=== PATIENT | female | born 1965 | race Caucasian/White ===

== ENCOUNTER → 2018-05-21 | Outpatient (CLI) | payer BC | LOC: FIMAGING 15:29 | PROVIDERS: ATTEND Orthopaedic Surgery | DX: M16.12 Unilateral primary osteoarthritis, left hip (principal) ==

== ENCOUNTER 2018-06-04 10:52 | Inpatient (IN) | payer BC ==
--- NOTE | 2018-06-04 06:50 | PDHPUP ---
History & Physical Update H&P update statement: This history and physical update is based on an assessment of the patient which was completed after admission or registration (within 24 hours), but prior to the surgery/procedure. H&P update: no change in patient's condition since H&P completed
--- NOTE | 2018-06-04 06:51 | PDIAF ---
- Diagnosis Diagnosis: left hip djd Code Status: Full Code - Medication Management Discharge Medications: electronically signed and located in the Home Medication List. - Orders Services needed: Home Care, Physical Therapy Home Care Face to Face: I certify that this patient was under my care and that I had the required mygl-pe-nnek encounter meeting the encounter requirements on the discharge day. My findings support the fact that the patient is homebound as defined in Home Care Face to Face Continued: CMS Chapter 7 Medicare Benefits Manual 30.1.1 , The condition of the patient is such that there exists a normal inability to leave home and consequently, leaving home would require a considerable and taxing effort. Diet Recommendation: no restrictions on diet Diet Texture: Regular Texture Diet Additional Instructions: TOTAL JOINT ARTHROPLASTY DISCHARGE INSTRUCTIONS 1. Your surgeon follows the [facility] protocol for reducing your risk of DVT (blood clots) following surgery. Medication will be ordered to prevent blood clots. A sudden increase in calf pain and/or swelling could indicate a blood clot in your leg. If this occurs, please call your surgeon or his/her pest controller assistant. An ultrasound of the leg may be necessary to diagnose a blood clot. If you have conditions that make you a higher risk for blood clots, your surgeon may use more aggressive ways to prevent them. Notify your surgeon if you think you are a high risk for blood clots. 2. Wear your white surgical stockings (GENNY hose) for 2 weeks. This decreases your swelling and may help prevent blood clots. It is ok to remove GENNY hose at night time to give your legs a break. 3. Swelling and bruising in the surgical leg is common. If you feel that it is excessive, please notify your surgeon. 4. Elevate your surgical leg with the ankle above the hip several times every day. Please keep the leg straight when you elevate by putting pillows under your foot. Do not put pillows under your knee. This will make being able to fully straighten more difficult. This is uncomfortable, but try to do it as much as possible. 5. For total knee replacements use compressive wrap on your knee for 3-5 days after surgery, then you can discontinue it. 6. Use a walker or crutches for 1-2 weeks. Progress your weight-bearing as tolerated. You may start to use a cane when you feel stable and safe. 7. You will receive physical therapy instructions in the hospital. Continue those exercises at home. There are additional exercises in the total joint booklet you were given before surgery. Outpatient physical therapy will begin 7- 10 days after surgery. Please schedule this in advance. 8. Use ice on your knee at least 3-5 times every day for 30 minutes. This helps reduce pain and swelling. Also use it at night before falling asleep. 9. Leave your surgical dressing in place for 2 weeks. Your dressing is water resistant, but not waterproof. Cover it with Saran Wrap or Vcrfa-c-Wpwb before showering. You may shower as soon as you feel safe entering a shower. If you notice bleeding from your incision 2 or 3 days after surgery, please notify your surgeon. 10. Due to narcotics, decreased activity and altered diet, most patients experience constipation after surgery. Use migf-dyh-dtfxxdn stool softeners while you are on narcotics. 11. You may drive a car when you are comfortable bearing weight, have good muscular control of your leg and are off narcotics. This usually occurs 2-4 weeks after surgery, depending on which leg was operated on. 12. If there are questions not addressed here, please refer the [facility] book given for more information. If you still have questions, please contact your surgeon s office. 13. If you have a life-threatening emergency, please call 911 and go to the emergency room immediately. For non-life threatening emergencies, please call your physicians office for advice before going to the emergency room. - Follow Up Care Current Providers and Referrals: Sharonda Mina PA [Primary Care Provider] - Yousif Cisneros MD [Medical Doctor] -
[~2018-06-04 10:52] MED LIST: ROPIVACAINE 0.2% 80 MG, EPINEPHrine 0.2 MG, KETOROLAC TROMETHAMINE 30 MG, morphINE 10 M... IU ONE; TRANEXAMIC ACID 1,000 MG in NS 100 ML IV ONE
[2018-06-04] MEDS ORDERED: ceFAZolin 2 GM/DEXTROSE 100 ML IV ONE (11:03)
[2018-06-04] MEDS ORDERED: ACETAMINOPHEN 325 MG TAB PO ONE (11:03)
[2018-06-04] MEDS ORDERED: FAMOTIDINE 20 MG TAB PO ONE (11:03)
[2018-06-04] MEDS ORDERED: LR 1,000 ML IV SCH ×2 (11:30→16:00)
[2018-06-04] MEDS ORDERED: POLYMYXIN B SULFATE 500,000 UNIT/10 ML SYR IRR ONE (13:00)
[2018-06-04] MEDS ORDERED: BACITRACIN 50,000 UNITS/10 ML SYR IRR ONE (13:01)
--- NOTE | 2018-06-04 13:02 | PDANEPAE ---
ANE Past Medical History - Cardiovascular History Hx Hypertension: Yes Hx Arrhythmias: No Hx Chest Pain: No Hx Coronary Artery / Peripheral Vascular Disease: No Hx CHF / Valvular Disease: No Hx Palpitations: No - Pulmonary History Hx COPD: No Hx Asthma/Reactive Airway Disease: No Hx Recent Upper Respiratory Infection: No Hx Oxygen in Use at Home: No Hx Sleep Apnea: No Sleep Apnea Screening Result - Last Documented: Negative Pulmonary History Comment: ASTHMA W/BRONCHITIS OCCAS - Neurologic History Hx Cerebrovascular Accident: No Hx Seizures: No Hx Dementia: No Neurologic History Comment: HORMONAL H/As - Endocrine History Hx Diabetes: No - Renal History Hx Renal Disorders: No - Liver History Hx Hepatic Disorders: No - Neurological & Psychiatric Hx Hx Neurological and Psychiatric Disorders: No - Cancer History Hx Cancer: No - Congenital Disorder History Hx Congenital Disorders: No - GI History Hx Gastrointestinal Disorders: No - Other Health History Other Health History: NEG - Chronic Pain History Chronic Pain: Yes (L HIP & DOWN TO ANKLE) - Surgical History Prior Surgeries: NONE ANE Review of Systems Review of Systems: - Exercise capacity METS (RN): 4 METS ANE Patient History - Allergies Allergies/Adverse Reactions: No Known Allergies Allergy (Verified 04/30/18 15:03) - Home Medications Home Medications: Cholecalciferol Vit D3 [Vitamin D3 (*)] 1,000 units PO DAILY 04/30/18 [Last Taken 05/28/18] Desogestrel-Ethinyl Estradiol [Reclipsen 28 Day Tablet] 0.5 each PO DAILY [Last Taken 05/14/18] Herbals/Supplements -Info Only 1 ea PO DAILY 04/30/18 [Last Taken 05/28/18] Ibuprofen [Motrin (*)] 200 mg PO DAILY PRN 04/30/18 [Last Taken 05/28/18] Losartan/Hydrochlorothiazide [Losartan-Hctz 100-12.5 mg Tab] 1 each PO DAILY 08/17 [Last Taken 06/03/18] Meloxicam 15 mg PO DAILY 04/30/18 [Last Taken 05/28/18] Multivitamins [Multivitamin (*)] 1 each PO DAILY 04/30/18 [Last Taken 03/22/18] - NPO status NPO Since - Liquids (Date): 06/04/18 NPO Since - Liquids (Time): 08:00 NPO Since - Solids (Date): 06/03/18 NPO Since - Solids (Time): 19:00 - Smoking Hx Smoking Status: Never smoked - Family Anes Hx Family Hx Anesthesia Complications: NEG ANE Labs/Vital Signs - Vital Signs Blood Pressure: 172/99 Heart Rate: 72 Respiratory Rate: 20 O2 Sat (%): 96 Height: 152.4 cm Weight: 97.522 kg ANE Physical Exam - Airway Mallampati Score: Class 2 - ASA Status ASA Status: II ANE Anesthesia Plan Anesthesia Plan: GA w LMA
[2018-06-04] MEDS ORDERED: MIDAZOLAM 2 MG/2 ML VIAL ONE (13:23)
[2018-06-04] MEDS ORDERED: METOCLOPRAMIDE 10 MG/2 ML VIAL ONE (13:24)
[2018-06-04] MEDS ORDERED: LIDOCAINE 2% JELLY 5 ML TUBE ONE (13:24)
[2018-06-04] MEDS ORDERED: PROPOFOL 200 MG/20 ML VIAL ONE (13:24)
[2018-06-04] MEDS ORDERED: fentaNYL 100 MCG/2 ML INJ ONE ×3 (13:24→15:51)
[2018-06-04] MEDS ORDERED: ONDANSETRON 4 MG/2 ML VIAL ONE ×3 (13:24→16:06)
[2018-06-04] MEDS ORDERED: PROPOFOL/EMULSION 500 MG/50 ML BOTTLE IV ONE (14:13)
[2018-06-04] MEDS ORDERED: LR 500 ML IV PRN (15:49)
[2018-06-04] MEDS ORDERED: MEPERIDINE 25 MG/0.5 ML AMP IVP PRN (15:49)
[2018-06-04] MEDS ORDERED: NALOXONE HCL 0.4 MG/ML INJ IVP PRN (15:49)
--- NOTE | 2018-06-04 15:50 | POSTANESTH ---
Post Anesthetic Evaluation Cardiovascular Status: Similar to Pre-Op Cond Respiratory Status: Normal, Stable Level of Consciousness/Mental Status: Can Participate in Eval Pain Control: Adequate, Prn Tx Ordered Nausea/Vomiting Control: Adequate, Prn Tx Ordered Complications Possibly Related to Anesthesia: None Noted
[2018-06-04] MEDS ORDERED: DIPHENOXYLATE/ATROPINE LOMOTIL 1 TAB PO PRN (15:53)
[2018-06-04] MEDS ORDERED: MAGNESIUM HYDROXIDE 30 ML UDCUP PO PRN (15:53)
[2018-06-04] MEDS ORDERED: diphenhydrAMINE 25 MG CAP PO PRN (15:53)
[2018-06-04] MEDS ORDERED: ONDANSETRON 4 MG/2 ML VIAL IVP PRN (15:53)
[2018-06-04] MEDS ORDERED: CYCLOBENZAPRINE 10 MG TAB PO PRN (15:53)
[2018-06-04] MEDS ORDERED: PROMETHAZINE HCL 25 MG SUPPR PR PRN (15:53)
[2018-06-04] MEDS ORDERED: POLYETHYLENE GLYCOL 3350 17 GM PKT PO PRN (15:53)
[2018-06-04] MEDS ORDERED: METOCLOPRAMIDE 10 MG/2 ML VIAL IVP PRN (15:53)
[2018-06-04] MEDS ORDERED: BISACODYL 10 MG SUPP PR PRN (15:53)
[2018-06-04] MEDS ORDERED: TEMAZEPAM 15 MG CAP PO PRN (15:53)
[2018-06-04] MEDS ORDERED: LACTULOSE 20 GM/30 ML UDCUP PO PRN (15:53)
[2018-06-04] MEDS ORDERED: ONDANSETRON DISINTEGRATING 4 MG TAB PO PRN (15:53)
[2018-06-04] MEDS ORDERED: PROMETHAZINE HCL 25 MG/ML INJ IVP PRN (15:53)
[2018-06-04] MEDS: fentaNYL 100 MCG/2 ML INJ IVP PRN ×2 (15:54→16:05)
[2018-06-04] MEDS ORDERED: HYDROmorphONE/DILAUDID 2 MG/ML INJ ONE (15:55)
--- NOTE | 2018-06-04 15:56 | POSTOPPROG ---
Post Op Note Date of Operation: 06/04/18 Surgeon: Yousif Cisneros Java Web Application Developer: jaden Anesthesiologist: jd Anesthesia: GET(General Endotracheal) Pre-op Diagnosis: left hip djd Post-op Diagnosis: same Indication: same Procedure: left veronica Inf/Abcess present in the surg proc area at time of surgery?: No Depth: Deep Incisional (Fascial) EBL: 100-500 Drains: Hemovac
[2018-06-04] MEDS: ONDANSETRON 4 MG/2 ML VIAL IVP PRN ×2 (15:57→16:09)
[2018-06-04] MEDS: HYDROmorphONE/DILAUDID 2 MG/ML INJ IVP PRN ×3 (15:59→16:40)
[2018-06-04] MEDS ORDERED: PROMETHAZINE HCL 25 MG/ML INJ ONE (16:06)
[2018-06-04] MEDS: PROMETHAZINE HCL 25 MG/ML INJ IVP PRN ×2 (16:14→16:43)
[2018-06-04] MEDS: TRANEXAMIC ACID 650 MG TAB PO SCH (21:55)
[2018-06-04] MEDS: ASPIRIN 325 MG TAB PO SCH (21:55)
[2018-06-04] MEDS: SENNOSIDES/DOCUSATE SODIUM TAB PO SCH (21:56)
[2018-06-04] MEDS: FAMOTIDINE 20 MG TAB PO SCH (21:56)
[2018-06-04] MEDS: ceFAZolin 2 GM/DEXTROSE 100 ML IV SCH (21:57)
[2018-06-04] MEDS: ACETAMINOPHEN 325 MG TAB PO SCH (22:04)
[2018-06-05] MEDS: ACETAMINOPHEN 325 MG TAB PO SCH ×3 (00:26→12:09)
[2018-06-05] MEDS: ceFAZolin 2 GM/DEXTROSE 100 ML IV SCH (05:17)
[2018-06-05] MEDS: TRANEXAMIC ACID 650 MG TAB PO SCH (05:19)
--- NOTE | 2018-06-05 07:23 | SOAPPROG ---
SOAP Progress Note Assessment/Plan: Assessment: s/p veronica Plan:pt ot mobilization d/c when stable srict posterior hip precautions no side sleeping asa for dvt precautions 06/05/18 07:21 Subjective: nervous no cp or sob mod pain no current nausea Objective: Vital Signs Temp Pulse Resp BP Pulse Ox 36.8 C 69 16 110/63 99 06/05/18 03:58 06/05/18 03:58 06/05/18 03:58 06/05/18 03:58 06/05/18 03:58 Laboratory Results 06/05/18 04:45 06/04/18 06/05/18 06/06/18 05:59 05:59 05:59 Intake Total 3050 Output Total 860 Balance 2190 dressing intact drain removed intact pf,df,ehl toes warm and pink neg homans nupur xrays stable anatomic alignment, no fx or lucency ICD10 Worksheet Patient Problems: Problems Problem Status Onset Hip arthritis Acute - ICD10 Problem Qualifiers (1) Hip arthritis
--- NOTE | 2018-06-05 07:23 | PDIAF ---
- Diagnosis Diagnosis: left hip djd Code Status: Full Code - Medication Management Discharge Medications: electronically signed and located in the Home Medication List. - Orders Services needed: Home Care, Physical Therapy Home Care Face to Face: I certify that this patient was under my care and that I had the required ojpr-hc-jxsa encounter meeting the encounter requirements on the discharge day. My findings support the fact that the patient is homebound as defined in Home Care Face to Face Continued: CMS Chapter 7 Medicare Benefits Manual 30.1.1 , The condition of the patient is such that there exists a normal inability to leave home and consequently, leaving home would require a considerable and taxing effort. Diet Recommendation: no restrictions on diet Diet Texture: Regular Texture Diet Additional Instructions: TOTAL JOINT ARTHROPLASTY DISCHARGE INSTRUCTIONS 1. Your surgeon follows the [facility] protocol for reducing your risk of DVT (blood clots) following surgery. Medication will be ordered to prevent blood clots. A sudden increase in calf pain and/or swelling could indicate a blood clot in your leg. If this occurs, please call your surgeon or his/her golf course assistant. An ultrasound of the leg may be necessary to diagnose a blood clot. If you have conditions that make you a higher risk for blood clots, your surgeon may use more aggressive ways to prevent them. Notify your surgeon if you think you are a high risk for blood clots. 2. Wear your white surgical stockings (GENNY hose) for 2 weeks. This decreases your swelling and may help prevent blood clots. It is ok to remove GENNY hose at night time to give your legs a break. 3. Swelling and bruising in the surgical leg is common. If you feel that it is excessive, please notify your surgeon. 4. Elevate your surgical leg with the ankle above the hip several times every day. Please keep the leg straight when you elevate by putting pillows under your foot. Do not put pillows under your knee. This will make being able to fully straighten more difficult. This is uncomfortable, but try to do it as much as possible. 5. For total knee replacements use compressive wrap on your knee for 3-5 days after surgery, then you can discontinue it. 6. Use a walker or crutches for 1-2 weeks. Progress your weight-bearing as tolerated. You may start to use a cane when you feel stable and safe. 7. You will receive physical therapy instructions in the hospital. Continue those exercises at home. There are additional exercises in the total joint booklet you were given before surgery. Outpatient physical therapy will begin 7- 10 days after surgery. Please schedule this in advance. 8. Use ice on your knee at least 3-5 times every day for 30 minutes. This helps reduce pain and swelling. Also use it at night before falling asleep. 9. Leave your surgical dressing in place for 2 weeks. Your dressing is water resistant, but not waterproof. Cover it with Saran Wrap or Sfwod-m-Mvob before showering. You may shower as soon as you feel safe entering a shower. If you notice bleeding from your incision 2 or 3 days after surgery, please notify your surgeon. 10. Due to narcotics, decreased activity and altered diet, most patients experience constipation after surgery. Use nfqx-kmy-juwzqwj stool softeners while you are on narcotics. 11. You may drive a car when you are comfortable bearing weight, have good muscular control of your leg and are off narcotics. This usually occurs 2-4 weeks after surgery, depending on which leg was operated on. 12. If there are questions not addressed here, please refer the [facility] book given for more information. If you still have questions, please contact your surgeon s office. 13. If you have a life-threatening emergency, please call 911 and go to the emergency room immediately. For non-life threatening emergencies, please call your physicians office for advice before going to the emergency room. - Follow Up Care Current Providers and Referrals: Sharonda Mina PA [Primary Care Provider] - Yousif Cisneros MD [Medical Doctor] -
[2018-06-05] MEDS ORDERED: LOSARTAN/HCTZ 50/12.5 1 TAB PO SCH (09:00)
[2018-06-05] MEDS ORDERED: Desogestrel-Ethinyl Estradiol [Reclipsen 28 Day Tablet] PO SCH (09:00)
[2018-06-05] MEDS ORDERED: LOSARTAN POTASSIUM 50 MG TAB PO SCH (09:00)
[2018-06-05] MEDS: ASPIRIN 325 MG TAB PO SCH (09:13)
[2018-06-05] MEDS: FAMOTIDINE 20 MG TAB PO SCH (09:15)
[2018-06-05] MEDS: SENNOSIDES/DOCUSATE SODIUM TAB PO SCH (09:15)
[2018-06-05] MEDS: oxyCODONE IR 5 MG TAB PO PRN ×2 (09:20→15:00)
--- NOTE | 2018-06-05 09:37 | PDMN ---
Medical Necessity Medical necessity: [facility] M560 hip arthropalsty OP: SUJATHA :2 days INPT approved auth # [id number] CPT [id number]
[2018-06-05 11:41] VITALS: BP 101/74
--- NOTE | 2018-06-05 12:05 | ASMTLACE ---
LACE Length of stay for Answers: 2 days current admission Acuity / Level of Answers: Yes Care: Did the patient have an inpatient admission? Comorbidities - select Answers: Opioid dependence all that apply / Chronic pain Other Notes: HTN # of Emergency department Answers: 0 visits in the last 6 months Score: 10 Date Signed: 06/05/2018 12:05 PM Electronically Signed By:CARMEN Carranza
--- NOTE | 2018-06-05 12:07 | ASMTCMCOM ---
CM Note CM Note Notes: Pt had planned OA of hip. Pt medically stable for d/c with [facility]. Pt address/phone verified. Orders sent in [employer]. PT rec home care/outpatient. Date Signed: 06/05/2018 12:06 PM Electronically Signed By:CARMEN Carranza
--- NOTE | 2018-06-06 13:54 | ASDISCHSUM ---
Discharge Information Plan Status:Home with Home Health Medically Cleared to Leave: Discharge Date:06/05/2018 03:05 PM CM D/C Disposition: ADT D/C Disposition:Home Health Service Projected Discharge Date:06/05/2018 11:00 AM Transportation at D/C: Discharge Delay Reason: Follow-Up Date:06/05/2018 11:00 AM Discharge Slot: Final Diagnosis: Placement Information Referral Type:*Home Health Care Services Referral ID:[id number] Provider Name:[facility] Address 1:[address] [address] Address 2: City:[place] Selection Factors: State:[place] Patient Contact Information Contact Name:JYOTI Relationship:Son Address: Work Phone: City: [facility] Phone: [facility] Code: Email: Financial Information Financial Class:BCOP Primary Plan Desc: OUT OF STATE [facility] Primary Plan Number:[id number] Secondary Plan Desc: Secondary Plan Number: Assessment Information LACE LACE Length of stay for Answers: 2 days current admission Acuity / Level of Answers: Yes Care: Did the patient have an inpatient admission? Comorbidities - select Answers: Opioid dependence all that apply / Chronic pain Other Notes: HTN # of Emergency department Answers: 0 visits in the last 6 months Score: 10 Date Signed: 06/05/2018 12:05 PM Electronically Signed By:CARMEN Carranza [facility] Progress Note CM Lee Ann CM Note Notes: Pt had planned OA of hip. Pt medically stable for d/c with [facility]. Pt address/phone verified. Orders sent in [employer]. PT rec home care/outpatient. Date Signed: 06/05/2018 12:06 PM Electronically Signed By:CARMEN Carranza Intervention Information
--- NOTE | 2018-06-10 08:45 | GOP ---
DATE OF OPERATION: 06/04/2018 SURGEON: Yousif Cisneros MD ASTRONOMY PROFESSOR: Panda Norris, operating room surgical technologist who was a medical necessity for the entirety of the case pr eop. PREOPERATIVE DIAGNOSIS: Left hip degenerative joint disease. POSTOPERATIVE DIAGNOSIS: Left hip degenerative joint disease. PROCEDURE PERFORMED: Left total hip arthroplasty-posterior. FINDINGS: SPECIMENS: To Pathology, femoral head. INDICATIONS: The patient is a 52-year-old woman with end-stage arthritis to her left hip. She has c ollapse of the femoral head and limitation in all her activities of daily living. I have, therefore, recommended total hip replacement. Given her obesity and pannus, she is not a candidate for anterio r hip, I, therefore, recommended posterior hip approach. She understands the risks, benefits, altern atives, and wished to proceed. Written consent was signed and placed in patient's chart. DESCRIPTION OF PROCEDURE: The patient was identified in the preanesthesia area. The left hip clearl y demarcated as the operative site with indelible marker. She was given 2 g of Ancef intravenously i n route to the operative suite. In the OR, general endotracheal anesthesia was administered. She wa s turned to the right lateral decubitus position. Axillary roll was placed and appropriate padding. She was secured with a PEG board. The left hip and lower extremity were then sterilely prepped and draped in the usual fashion. Appropriate time-out procedure was carried out. Attention was then turned to the left hip. A 2 cm incision was made over the iliac crest, and 3 pins were then placed with the pelvic reference array affixed. A posterior approach was then made. A la teral incision extending posteriorly across her gluteal musculature was placed. Subcutaneous tissue was sharply dissected. Tensor fascia ashly was opened in the origin of its fibers and extended into t he muscular tissue. A Charnley retractor was then placed with care to avoid the sciatic nerve inspector precision assembly iorly. The hip was then gently internally rotated. The fat and the bursa were swept posteriorly off the short external rotators. A Hohmann retractor placed deep to the gluteus medius. Piriformis was tagged with a #1 Ethibond suture, and this was resected with the capsule off the posterior lateral a spect of the femoral head and neck. A T-capsulotomy was then made. The hip was then dislocated. An acetabular checkpoint was placed. The head cut was made and the head fragment withdrawn. Soft tiss ue release was made, and the hip was displaced anterior to the acetabulum with an anterior hip retrac tor. The remnants of the acetabular labrum were sharply excised. The bony landmarks were entered in to the computer in standard fashion. Using the MAKOplasty robot, a 50 mm reamer was placed in an opening angle of 40 degrees and anteversi on of 20 degrees. A 50 mm Tritanium shell was then placed, a 0 degree X3 liner was placed confirmed to be fully seated. The acetabular checkpoint was withdrawn. The femur was then delivered through t he wound with soft tissue retractors. The proximal canal opened with a box cutting chisel. Serial b roaching carried out to a size 3. Trial reduction with a 32 mm +0 mm neck length restored the leg le ngths to equal. Stability profile demonstrated 90 degrees of flexion with 30 degrees internal rotati on, with mild dislocation. The hip would dislocate at approximately 50 degrees internal rotation in 90 degrees of flexion. The trial stem was withdrawn. A final stem was placed, confirmed to be fully seated. A 32 mm +0 mm neck head was then placed, confirmed to be fully seated. The hip was reduced, copiously irrigated. The tissue was injected with a joint cocktail of ropivacaine, morphine, Toradol, and epinephrine. 3 drill holes were made across the posterior aspect of the greater trochanter, and the piriformis, supe rior and inferior capsule were then repaired with #1 Ethibond suture. The tensor repaired using #1 E thibond and 0 Vicryl. A 10-Japanese Hemovac drain was placed and connected to bulb suction. Subcutane ous tissue closed using 0 Vicryl, skin closed using 2-0 Monocryl, and the skin was stapled. Sterile compressive dressing was applied. The patient was awakened, taken to the recovery room in good, stab le condition. TOTAL TOURNIQUET TIME: None. COMPLICATIONS: None. IMPLANT: [place] Tritanium II acetabular shell size 50, X3 0 degree polyethylene insert 32 mm, 127 d egree neck angle hip stem size 3, Biolox ceramic head 32 mm +0 mm neck length. DISPOSITION: To the recovery room, then the floor. She is weightbearing as tolerated. She needs to follow strict posterior hip precautions with an abduction pillow and no internal rotation greater th an 30 degrees. /[id number]/MODL
--- NOTE | 2018-06-10 09:00 | GDS ---
ADMISSION DIAGNOSIS: Left hip degenerative joint disease. DISCHARGE DIAGNOSIS: Left hip degenerative joint disease. PROCEDURE: Left posterior total hip arthroplasty. HISTORY OF PRESENT ILLNESS: The patient is a 52-year-old woman with end-stage arthritis to her left hip. Clinical and radiographic features consistent with this. She has failed all attempts at conser vative management. I, therefore, recommended operative intervention. I have outlined the surgical p rocedure, risks, benefits, and alternatives. She wished to proceed. Consent was signed and placed i n the patient's chart. HOSPITAL COURSE: The patient was admitted to the hospital floor after uncomplicated total hip arthro plasty. Her postoperative course was characterized by nausea; however, she did quickly progress with physical therapy. At the time of discharge, she is tolerating an oral diet, pain is well controlled on oral medicines. She is voiding without difficulty. Dressing is clean, dry, and intact. DISCHARGE ACTIVITY: She is weightbearing as tolerated. Posterior hip precautions. Abduction pillow at rest. No internal rotation and no hip flexion greater than 90 degrees. DISCHARGE MEDICATIONS: Oxycodone 5 mg 1 to 2 every 6 hours p.r.n. pain, aspirin 325 mg p.o. daily fo r 6 weeks. FOLLOWUP: In 2 weeks for repeat evaluation. Seek attention for increasing redness, swelling, draina ge, discharge, leg pain, shortness of breath, or other focal complaint. /[id number]/MODL
== END 2018-06-05 15:05 | disposition home health service (06) | DRG 470 ==
LOC: F3N 10:52
PROVIDERS: ADMIT Orthopaedic Surgery; ATTEND Orthopaedic Surgery
PROC: 0SRB04Z Replacement of Left Hip Joint with Ceramic on Polyethylene Synthetic Substitute, Open Approach (ICD-10-PCS; principal; 2018-06-04 13:15)
PROC: 8E0Y0CZ Robotic Assisted Procedure of Lower Extremity, Open Approach (ICD-10-PCS; principal; 2018-06-04 13:15)
DX: M16.12 Unilateral primary osteoarthritis, left hip (principal); E66.9 Obesity, unspecified; Z68.41 Body mass index [BMI] 40.0-44.9, adult
CPT/HCPCS: 97116-GP; 97161-GP; 97165-GO; 97530-GP; J0171; J0690; J1170; J1885; J2250; J2270; J2405; J2550; J2704; J2765; J2795; J3010